=== PATIENT | female | born 2000 | race Caucasian/White ===

== ENCOUNTER 2018-06-21 07:17 | Emergency (ER) | payer OTHER ==
[~2018-06-21] VITALS: Ht 160 cm; Wt 56.6 kg
[~2018-06-21 07:17] MED LIST: DIFFERIN; ZOFRAN4 MG PO; [UNRECOGNIZED DRUG - OTHER]
[2018-06-21 07:40] LABS: SOURCE URINE
[2018-06-21 07:46] LABS: APPEARANCE SL.HAZY ((CLEAR)); BILIRUBIN NEGATIVE; BLOOD LARGE; COLOR YELLOW ((YELLOW)); GLUCOSE (STRIP) NEGATIVE; KETONES NEGATIVE; LEUKOCYTES NEGATIVE; NITRITE NEGATIVE; PROTEIN (STRIP) 30; SPECIFIC GRAVITY 1.023 (1.000-1.030)
[2018-06-21 08:00] LABS: EPITHELIAL CELLS 3+ /HPF; MUCUS 3+ /LPF
[2018-06-21 08:01] LABS: BACTERIA 2+ /HPF; CALCIUM OXALATE CRYSTALS RARE /HPF; RED BLOOD CELLS TNTC /HPF (0-5); UCUL ADDED? YES; WHITE BLOOD CELLS 0-5 /HPF (0-5)
[2018-06-21 08:28] LABS: ALBUMIN 4.2 G/DL (3.2-4.8); CHLORIDE 107 MEQ/L (99-109); POTASSIUM 4.1 MEQ/L (3.7-5.4); SODIUM 141 MEQ/L (136-147); TOTAL BILIRUBIN 0.4 MG/DL (0.0-1.0)
[2018-06-21 08:34] LABS: ALKALINE PHOSPHATASE 48 IU/L (3-129); ALT (GPT) 12 IU/L (3-49); AST (GOT) 18 IU/L (2-34); CREATININE 0.8 MG/DL (0.6-1.3); GFR ESTIMATE (CALCULATED) > 59 mL/min/; GLUCOSE 102 mg/dL (70-99); TOTAL PROTEIN 6.7 G/DL (6.4-8.3); UREA NITROGEN (BUN) 6 mg/dL (9-23)
[2018-06-21 09:01] LABS: HEMATOCRIT 37.2 % (36.0-46.0); HEMOGLOBIN 12.9 G/DL (11.9-15.5); MCH 30.6 PG (29.0-34.0); MCHC 34.7 G/DL (30.0-36.0); MCV 88.2 FL (83-99); PLAT.SUFFICIENCY ADEQUATE; PLATELET COUNT 171 K/uL (156-360); RBC DIS.WIDTH-CV 12.3 % (11.8-14.6); RBC DIS.WIDTH-SD 39.8 % (39-53); RED BLOOD COUNT 4.22 M/uL (3.80-5.20); WHITE BLOOD COUNT 5.6 K/uL (4.1-10.2)
[2018-06-21 09:08] LABS: QUANTITATIVE HCG < 4.0 MIU/ML
[2018-06-21] MEDS ORDERED: ZOFRAN ODT4 MG PO (10:08)
[2018-06-21] MEDS ORDERED: KEFLEX500 MG PO (10:08)
[2018-06-21] MEDS ORDERED: PYRIDIUM200 MG PO (10:08)
[2018-06-21 10:37] VITALS: BP 104/49
[2018-06-24 12:33] LABS: CHLAMYDIA TRACHOMATIS NEGATIVE; NEISSERIA GONORRHOEAE NEGATIVE
== END 2018-06-21 10:43 | disposition home or self-care (01) ==
LOC: EME 07:17
PROVIDERS: Nurse Practitioner Family
DX: N30.90 Cystitis, unspecified without hematuria (principal); F41.9 Anxiety disorder, unspecified; E73.9 Lactose intolerance, unspecified
CPT/HCPCS: 80053; 81003; 84702; 85027; 87086; 87210; 87491; 87591; 99281; 99284